=== PATIENT | female | born 1985 | race Caucasian/White ===

== ENCOUNTER 2018-10-28 16:37 | Emergency (ER) | payer BC ==
[2018-10-28] MEDS ORDERED: KETOROLAC 60 MG/2 ML VIAL IM STA (17:20)
--- NOTE | 2018-10-28 18:29 | ED ---
Back Pain HPI - General Chief Complaint: Back Pain/Injury Stated Complaint: back pain Time Seen by Provider: 10/28/18 16:54 Source: patient, family Mode of arrival: wheelchair Limitations: no limitations - History of Present Illness Initial Comments: The patient is a 32-year-old female who presents to the emergency room with complaint of back pain. The patient states that she was pulling weeds all day. Her significant other is at bedside and helps provide a history. He states that he saw the patient stand up quickly and her "back gave out". The pain was so severe that she laid on the grass. She was able to get up and ambulate afterwards, however slowly The pain starts at her left SI joint and radiates down the posterior lateral aspect of her leg to her knee. She denies any numbness tingling or paralysis. The pain is worse with movement. She attempted to take a muscle relaxer which was and it hasn't helped. She also laid with heating pad. When her pain persisted she came into the ER. She does admit to a previous similar episode where she "threw her back out" and did receive the muscle relaxer rx. She denies previous imaging of her back. She denies any blunt trauma. Denies saddle anesthesia or bowel or bladder incontinence or retention. No fevers or chills. She denies any hematuria, dysuria or difficulty voiding. Denies black stools, hematochezia, constipation or diarrhea. Does admit to unprotected intercourse with the possibility of being . Denies any abnormal vaginal bleeding or discharge. There are no other alleviating, precipitating or modifying factors. - Related Data Previous Rx's Medication Instructions Recorded Cyclobenzaprine [Flexeril] 10 mg PO TID PRN #15 tab 10/28/18 predniSONE 20 mg PO BID 5 Days #10 tab 10/28/18 Allergies Allergy/AdvReac Type Severity Reaction Status Date / Time No Known Allergies Allergy Verified 10/28/18 16:44 Review of Systems ROS Statement: Those systems with pertinent positive or pertinent negative responses have been documented in the HPI. ROS Other: All systems not noted in ROS Statement are negative. Past Medical History Past Medical History: No Reported History History of Any Multi-Drug Resistant Organisms: None Reported Past Surgical History: Appendectomy Past Psychological History: No Psychological Hx Reported Smoking Status: Current every day smoker Past Alcohol Use History: Occasional Past Drug Use History: None Reported General Exam Limitations: no limitations General appearance: alert, in no apparent distress Head exam: Present: atraumatic, normocephalic, normal inspection Eye exam: Present: normal appearance, PERRL, EOMI. Absent: scleral icterus, conjunctival injection, periorbital swelling ENT exam: Present: normal exam, mucous membranes moist Neck exam: Present: normal inspection. Absent: tenderness, meningismus, lymphadenopathy Respiratory exam: Present: normal lung sounds bilaterally. Absent: respiratory distress, wheezes, rales, rhonchi, stridor Cardiovascular Exam: Present: regular rate, normal rhythm, normal heart sounds. Absent: systolic murmur, diastolic murmur, rubs, gallop, clicks GI/Abdominal exam: Present: soft, normal bowel sounds. Absent: distended, tenderness, guarding, rebound, rigid Extremities exam: Present: normal inspection, full ROM, normal capillary refill. Absent: tenderness, pedal edema, joint swelling, calf tenderness Back exam: Present: normal inspection, tenderness, other (The patient has tenderness about the left SI joint. She does have a positive straight leg raise on the left. Negative Homans sign. Negative Quintero sign. 5 out of 5 muscle strength in the bilateral lower extremity to include the hip flexors, knee extensors, ankle and great toe dorsiflexors and plantar flexors. Intact 2 point discrimination and soft touch in the bilateral lower extremities. Intact 2 out of 4 Achilles and patellar reflexes.). Absent: paraspinal tenderness, vertebral tenderness, rash noted Neurological exam: Present: alert, oriented X3, CN II-XII intact Psychiatric exam: Present: normal affect, normal mood Skin exam: Present: warm, dry, intact, normal color. Absent: rash Course Vital Signs 10/28/18 10/28/18 16:40 18:40 Temperature 98.3 F 99.2 F Pulse Rate 87 72 Respiratory 18 20 Rate Blood Pressure 114/70 127/72 O2 Sat by Pulse 100 98 Oximetry Medical Decision Making - Medical Decision Making The patient was placed into room 15. I did discuss the diagnosis, differential and treatment options. I did offer imaging of the patient's spine however she refused. I did recommend a urine test for which the patient did agree. Test returned and was negative for . The patient was given 30 mg of Toradol IM. She was reevaluated and had improvement in her pain. The patient does not demonstrate any spinous process tenderness. I did recommend treatment with a 5 day course of prednisone. The patient will also be given a prescription for Flexeril. She is not work or drive while taking the medications as they can be sedating. She is to not use NSAIDs in conjunction with the steroids. She is to use a heating pad 4 times a day for 20 minutes each. She is to rest with no heavy lifting. The patient will be provided a work note. She will need to follow-up with her primary care physician for reevaluation. The patient is instructed that she may need an MRI. Should she have any new or worsening symptoms, she should return to the emergency department. Patient was in agreement with the treatment plan and she was discharged home in stable condition. - Differential Diagnosis Sciatica, lumbar radiculopathy, acute lumbar back pain - Lab Data Lab Results 10/28/18 Range/Units Unknown Urine HCG, Qual Not Detected (Not Detectd) Disposition Clinical Impression: Sciatica, Strain of lumbar region, Lumbar radiculopathy Disposition: HOME SELF-CARE Condition: Stable Instructions (If sedation given, give patient instructions): Acute Low Back Pain (ED) Additional Instructions: Please follow-up with your primary care physician in 2-4 days. Return to the emergency room for any new or worsening symptoms. If your pain persists, you may need an MRI. Prescriptions: Cyclobenzaprine [Flexeril] 10 mg PO TID PRN #15 tab PRN Reason: Muscle Spasm predniSONE 20 mg PO BID 5 Days #10 tab Is patient prescribed a controlled substance at d/c from ED?: No Referrals: Bisi Long MD [Primary Care Provider] - 1-2 days Time of Disposition: 18:28
[2018-10-28 18:41] VITALS: BP 127/72; PULSE 72; RESP 20; TEMP 99.2
== END 2018-10-28 18:40 | disposition home or self-care (01) ==
LOC: EC 16:37
DX: S39.012A Strain of muscle, fascia and tendon of lower back, initial encounter (principal); M54.16 Radiculopathy, lumbar region; M54.32 Sciatica, left side; F17.200 Nicotine dependence, unspecified, uncomplicated; Z32.02 Encounter for pregnancy test, result negative; X58.XXXA Exposure to other specified factors, initial encounter
CPT/HCPCS: 81025; 99283; 96372; J1885

== ENCOUNTER → 2018-10-31 | Outpatient (CLI) | payer BC ==
--- NOTE | 2018-10-31 13:35 | XR ---
Lumbosacral spine HISTORY: Low back pain 5 views of lumbosacral spine There is no evident spondylolysis or spondylolisthesis. Lumbar vertebral bodies show preserved height , alignment, and bone mineralization. Disc spaces are maintained. IMPRESSION: Normal lumbar spine.
== END | disposition home or self-care (01) ==
LOC: RADXRYALE 13:09
PROVIDERS: ATTEND Internal Medicine
DX: M54.42 Lumbago with sciatica, left side (principal)
CPT/HCPCS: 72110

== ENCOUNTER → 2019-01-31 | Outpatient (CLI) | payer BC ==
--- NOTE | 2019-01-31 11:23 | XR ---
EXAMINATION TYPE: XR chest 2V DATE OF EXAM: 01/31/2019 COMPARISON: NONE TECHNIQUE: PA and lateral views submitted. HISTORY: Preop FINDINGS: The lungs are clear and there is no pneumothorax, pleural effusion, or focal pneumonia. IMPRESSION: 1. No acute process.
== END | disposition home or self-care (01) ==
LOC: RADXRYALE 10:54
PROVIDERS: ATTEND Internal Medicine
DX: Z01.818 Encounter for other preprocedural examination (principal)
CPT/HCPCS: 71046

== ENCOUNTER → 2019-02-16 | Outpatient (CLI) | payer BC ==
--- NOTE | 2019-02-16 13:27 | XR ---
EXAMINATION TYPE: XR chest 2V DATE OF EXAM: 02/16/2019 COMPARISON: NONE TECHNIQUE: PA and lateral views submitted. HISTORY: Persistent cough FINDINGS: The lungs are clear and there is no pneumothorax, pleural effusion, or focal pneumonia. IMPRESSION: 1. No acute process.
== END | disposition home or self-care (01) ==
LOC: RADXRYALE 13:12
PROVIDERS: ATTEND Internal Medicine
DX: R05 Cough (principal)
CPT/HCPCS: 71046

== ENCOUNTER 2023-04-09 21:51 | Emergency (ER) | payer BC ==
[2023-04-09] MEDS ORDERED: KETOROLAC 15 MG/ML 1 ML VIAL IVP STA (22:28)
[2023-04-09] MEDS ORDERED: MORPHINE SULFATE 4 MG/ML SYRINGE IVP STA (22:28)
[2023-04-09] MEDS ORDERED: DEXAMETHASONE SOD PHOSPHATE 10 MG/ML 1 ML VIAL IVP STA (22:28)
[2023-04-09] MEDS ORDERED: ORPHENADRINE 30 MG/ML 2 ML VIAL IVP STA (22:28)
--- NOTE | 2023-04-09 22:37 | ED ---
Back Pain HPI - General Chief Complaint: Back Pain/Injury Stated Complaint: back pain Time Seen by Provider: 04/09/23 22:21 Source: patient, RN notes reviewed Mode of arrival: ambulatory Limitations: no limitations - History of Present Illness Initial Comments: This is a 37-year-old female who presents to the emergency department for lower back pain. Patient states that she's had problems with back pain since 2019. She had back surgery on L4-L5 in 2019 with [facility]. She has continued to have intermittent problems with back pain, however she states that over the last couple of days it has been much more severe. She works at [employer] and does admit to a lot of bending and lifting. She denies any loss of bowel/bladder control or saddle anesthesia. Pain is worse on the right side. States that laying flat is the most comfortable position. MD Complaint: back pain - Related Data Previous Rx's Medication Instructions Recorded Cyclobenzaprine [Flexeril] 10 mg PO TID PRN #15 tab 10/28/18 predniSONE [Deltasone] 20 mg PO BID 5 Days #10 tab 10/28/18 Lidocaine 5% Patch [Lidoderm 5% 1 patch TOPICAL DAILY PRN #30 patch 04/10/23 Patch] methocarbamoL [Robaxin-750] 1,500 mg PO TID PRN #30 tab 04/10/23 predniSONE 50 mg PO DAILY 5 Days #5 tab 04/10/23 Allergies Allergy/AdvReac Type Severity Reaction Status Date / Time Bleach (Sodium Hypochlorite) Allergy Unknown Verified 04/09/23 22:15 Review of Systems ROS Statement: Those systems with pertinent positive or pertinent negative responses have been documented in the HPI. ROS Other: All systems not noted in ROS Statement are negative. Past Medical History Past Medical History: No Reported History History of Any Multi-Drug Resistant Organisms: None Reported Past Surgical History: Appendectomy Past Psychological History: No Psychological Hx Reported Smoking Status: Former smoker Past Alcohol Use History: Occasional Past Drug Use History: None Reported General Exam Limitations: no limitations General appearance: alert, in distress Head exam: Present: atraumatic, normocephalic, normal inspection Respiratory exam: Present: normal lung sounds bilaterally. Absent: respiratory distress, wheezes, rales, rhonchi, stridor Cardiovascular Exam: Present: regular rate, normal rhythm, normal heart sounds. Absent: systolic murmur, diastolic murmur, rubs, gallop, clicks Back exam: Present: tenderness (Right lower back) Neurological exam: Present: alert, oriented X3, CN II-XII intact Psychiatric exam: Present: normal affect, normal mood Skin exam: Present: warm, dry, intact, normal color. Absent: rash Course Vital Signs 04/09/23 04/10/23 22:16 01:43 Temperature 98.3 F 98.0 F Pulse Rate 80 61 Respiratory 18 16 Rate Blood Pressure 149/80 120/68 O2 Sat by Pulse 98 98 Oximetry Medical Decision Making - Medical Decision Making This is a 37 year old female who presents to the emergency department for lower back pain. Was pt. sent in by a medical professional or institution? @ -No Did you speak to anyone other than the patient for history? @ -No Did you review nursing and triage notes? @ -Yes, and I agree, it is accurate with regards to the patient's symptoms. Were old charts reviewed? @ -No Differential Diagnosis? @ -Differential Back Pain: Strain, zoster, cauda equina syndrome, epidural abscess, vertebral osteomyelitis, discitis, fracture, subluxation, disc herniation, DJD, spinal stenosis, dissection, AAA, pancreatitis, peptic ulcer disease, pyelonephritis, kidney stone, this is not meant to be an all-inclusive list. EKG interpreted by me (3pts min.)? @ -Not obtained X-rays interpreted by me (1pt min.)? @ -X-ray of the lumbar spine obtained. My interpretation identifies no acute fractures. CT interpreted by me (1pt min.)? @ -Not obtained U/S interpreted by me (1pt. min.)? @ -Not obtained What testing was considered but not performed? (CT, X-rays, U/S, labs)? Why? @ -None What meds were considered but not given? Why? @ -None Did you discuss the management of the patient with other professionals? @ -No Did you reconcile home meds? @ -No Was smoking cessation discussed for >3mins.? @ -No Was critical care preformed (if so, how long)? @ -No Were there social determinants of health that impacted care today? How? (Homele ssness, low income, unemployed, alcoholism, drug addiction, transportation, low edu. Level, literacy, decrease access to med. care, skilled nursing, rehab)? @ -No Was there de-escalation of care discussed even if they declined? (Discuss DNR or withdrawal of care, Hospice)? @ -No What co-morbidities impacted this encounter? (DM, HTN, Smoking, COPD, CAD, Cancer, CVA, Hep., AIDS, mental health diagnosis, sleep apnea, morbid obesity)? @ -None Was patient admitted / discharged? @ -Discharged. X-ray of the lumbar spine obtained revealing no acute process. Patient's pain was well controlled in the emergency department. Advised that this is likely related to a lumbar strain, especially in light of her frequent bending and lifting. Prescriptions for prednisone, Robaxin, and lidocaine patches provided with dosing instructions reviewed. She will otherwise follow up with her primary care provider for reevaluation. Undiagnosed new problem with uncertain prognosis? @ -None Drug Therapy requiring intensive monitoring for toxicity (Heparin, Nitro, Insulin, Cardizem)? @ -None Were any procedures done? @ -None Diagnosis/symptom? @ -Lumbar strain Acute, or Chronic, or Acute on Chronic? @ -Acute Uncomplicated (without systemic symptoms) or Complicated (systemic symptoms)? @ -Uncomplicated Side effects of treatment? @ -None Exacerbation, Progression, or Severe Exacerbation] @ -Not applicable Poses a threat to life or bodily function? @ -Yes, the pain is impacting her ability to function. Return precautions reviewed in depth, the patient is instructed to return to the emergency department with any new, worsening, or concerning symptoms. Patient verbalized understanding. This case was discussed in detail with the attending ED physician, Dr. Marquez. Presentation, findings, and treatment plan discussed in detail as well. - Radiology Data Radiology results: report reviewed, image reviewed Disposition Clinical Impression: Strain of lumbar region Disposition: HOME SELF-CARE Instructions (If sedation given, give patient instructions): Low Back Strain (ED), Acute Low Back Pain (ED) Additional Instructions: Return to the emergency department with any new, worsening, or concerning symptoms. Take the prednisone daily for 5 days. You can apply the lidocaine patches daily as well. Take the Robaxin as 1-2 tablets 3-4 times daily. Be aware that this may be sedating and you should avoid driving or operating machinery when taking this. Follow up with your primary care provider in 1-2 days. Prescriptions: Lidocaine 5% Patch [Lidoderm 5% Patch] 1 patch TOPICAL DAILY PRN #30 patch PRN Reason: Pain predniSONE 50 mg PO DAILY 5 Days #5 tab methocarbamoL [Robaxin-750] 1,500 mg PO TID PRN #30 tab PRN Reason: Pain Is patient prescribed a controlled substance at d/c from ED?: No Referrals: Bisi Long MD [Primary Care Provider] - 1-2 days
--- NOTE | 2023-04-10 01:09 | XR ---
EXAM: XR Lumbosacral Spine, 2 or 3 Views CLINICAL HISTORY: ITS.REASON XR Reason: Lower back pain States she has been lifting items lately and has increased back pain TECHNIQUE: Frontal and lateral views of the lumbar spine and sacrum. COMPARISON: No relevant prior studies available. FINDINGS: Vertebrae: Unremarkable. No acute fracture. Normal alignment. Sacrum/coccyx: Unremarkable as visualized. No acute fracture. Disc spaces: No acute findings. No significant narrowing. Soft tissues: Unremarkable. IMPRESSION: No evidence of acute fracture or malalignment.
[2023-04-10] MEDS ORDERED: ACET/COD 300 MG/30 MG STARTER PACK 6 TAB BTL PO STA (01:17)
[2023-04-10 01:53] VITALS: BP 120/68; PULSE 61; RESP 16; TEMP 98
== END 2023-04-10 01:49 | disposition home or self-care (01) ==
LOC: EC 21:51
DX: S39.012A Strain of muscle, fascia and tendon of lower back, initial encounter (principal); Z87.891 Personal history of nicotine dependence; Z88.8 Allergy status to other drugs, medicaments and biological substances; X58.XXXA Exposure to other specified factors, initial encounter
CPT/HCPCS: 72100; 99283; 96374; 96375 ×3; J2270; J1100; J2360; J1885

== ENCOUNTER 2024-04-13 23:18 | Emergency (ER) | payer BC ==
[2024-04-13 23:25] VITALS: TEMP 98.4
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
[2024-04-14 04:12] VITALS: BP 117/79; PULSE 66; RESP 18
== END 2024-04-14 04:03 | disposition home or self-care (01) ==
LOC: EC 23:18
CPT/HCPCS: 29125; 99284